=== PATIENT | male | born 1995 | race Hispanic/Latino ===

== ENCOUNTER 2019-11-28 09:51 | Emergency (ER) | payer OTHER ==
[~2019-11-28] VITALS: Ht 167.6 cm; Wt 63.6 kg
[2019-11-28] MEDS ORDERED: KETOROLAC 30 MG/ML VIAL (J1885) IV ONE (10:15)
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
[2019-11-28] MEDS ORDERED: NS 1,000 ML IV ONE (11:00)
[2019-11-28] MEDS ORDERED: IBUP-1022 PO (11:48)
[2019-11-28 13:00] VITALS: BP 112/68
== END 2019-11-28 13:01 | disposition home or self-care (01) ==
LOC: EDBD 09:51 → M ED 09:51
DX: S06.0X0A Concussion without loss of consciousness, initial encounter (principal); V44.5XXA Car driver injured in collision with heavy transport vehicle or bus in traffic accident, initial encounter; Y92.415 Exit ramp or entrance ramp of street or highway as the place of occurrence of the external cause; M54.9 Dorsalgia, unspecified
CPT/HCPCS: 70450; 72125; 96374; 99284; J1885

== ENCOUNTER 2020-07-14 11:33 | Emergency (ER) | payer OTHER ==
[~2020-07-14] VITALS: Ht 167.6 cm; Wt 71.3 kg
[2020-07-14 11:33] VITALS: BP 128/62
[~2020-07-14 11:33] MED LIST: IBUP-1022 PO
[2020-07-14] MEDS ORDERED: NAPR-837 PO (12:25)
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
== END 2020-07-14 12:36 | disposition home or self-care (01) ==
LOC: M ED 11:33
DX: S83.412A Sprain of medial collateral ligament of left knee, initial encounter (principal); X50.1XXA Overexertion from prolonged static or awkward postures, initial encounter; Y92.89 Other specified places as the place of occurrence of the external cause; Y93.72 Activity, wrestling; Y99.8 Other external cause status